=== PATIENT | male | born 1985 | race Two or more races ===

== ENCOUNTER 2022-01-31 08:00 | Outpatient (CLI) | payer SELFPAY ==
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
== END 2022-01-31 23:59 | disposition home or self-care (01) ==
LOC: DI.S 08:00
PROVIDERS: ATTEND Registered Nurse
DX: M79.662 Pain in left lower leg (principal); M79.89 Other specified soft tissue disorders; Z87.828 Personal history of other (healed) physical injury and trauma